=== PATIENT | female | born 1940 | race Two or more races ===

== ENCOUNTER 2022-03-18 06:50 | Day surgery (SDC) | payer OTHER ==
[~2022-03-18] VITALS: Ht 157.5 cm; Wt 72.6 kg
[~2022-03-18 06:50] MED LIST: B12 ACTIVE1000 MCG PO; CARVEDILOL3.125 M1 PO; COZAAR100 MG PO; MAXIMUM D3325 MCG PO; ZOCOR20 MG PO
== END 2022-03-18 17:15 | disposition home or self-care (01) ==
LOC: CIR.AMB 06:50
PROVIDERS: ATTEND Colon & Rectal Surgery
DX: R15.9 Full incontinence of feces (principal); I10 Essential (primary) hypertension; E11.9 Type 2 diabetes mellitus without complications; Z20.822 Contact with and (suspected) exposure to COVID-19
CPT/HCPCS: 64581; 95972; C1778

== ENCOUNTER 2022-04-08 09:10 | Day surgery (SDC) | payer OTHER | END 2022-04-08 16:40 | disposition home or self-care (01) | LOC: CIR.AMB 09:10 | PROVIDERS: ATTEND Colon & Rectal Surgery | DX: R19.5 Other fecal abnormalities (principal); K58.9 Irritable bowel syndrome, unspecified; K64.0 First degree hemorrhoids; R15.9 Full incontinence of feces; K57.32 Diverticulitis of large intestine without perforation or abscess without bleeding; I10 Essential (primary) hypertension; F17.210 Nicotine dependence, cigarettes, uncomplicated | CPT/HCPCS: 64590; 95972; L8679 ==